=== PATIENT | female | born 1950 | race Caucasian/White ===

== ENCOUNTER 2018-09-05 15:02 | Outpatient (CLI) | payer MEDICARE, MEDICAID ==
[~2018-09-05] VITALS: Ht 154.9 cm; Wt 62.6 kg
[2018-09-05 15:10] VITALS: BP 120/72
--- NOTE | 2018-09-06 01:00 | Consultation ---
DATE OF CONSULTATION: 09/05/2018 CONSULTING PHYSICIAN: Mark Lechuga M.D. CHIEF COMPLAINT: Screening colonoscopy evaluation, chronic GERD. HISTORY OF PRESENT ILLNESS: This is a 68-year-old female with past medical history of breast cancer, status post mastectomy, currently on pills, arthritis, who presents for evaluation of screening colonoscopy and history of chronic GERD. PAST MEDICAL HISTORY: As above. PAST SURGICAL HISTORY: Right mastectomy. MEDICATIONS: Naprosyn, Celebrex, and chemotherapy for breast CA. FAMILY HISTORY: Noncontributory. SOCIAL HISTORY: The patient denies any tobacco, alcohol, or illicit drug abuse. . ALLERGIES: No known drug allergies. PHYSICAL EXAMINATION: VITAL SIGNS: Temperature 97.4, pulse is 77, blood pressure is 120/72. HEENT: Normocephalic and atraumatic. No scleral icterus. NECK: Supple. No obvious evidence of lymphadenopathy. CARDIOVASCULAR: Regular rate and rhythm. Plus S1 and S2. No obvious murmur. LUNGS: Clear to auscultation bilaterally. ABDOMEN: Positive bowel sounds. Soft, nontender. No rebound. No guarding. No peritoneal sign. EXTREMITIES: No cyanosis, no clubbing, no edema. ASSESSMENT AND PLAN: This is a 68-year-old female in need for screening colonoscopy. Last colonoscopy more than five years ago. She does not know if she had polyps or she did not have polyps. Reports are not available. The patient also complained of chronic GERD, so we will plan to do endoscopy and colonoscopy. The patient was given instructions for the procedure and the prep. The patient states she will call for an appointment. I want to thank Dr. Roberto Carlos Ybarra for this kind referral. Mark Lechuga M.D. DR: AG JOB#: [id number] CC: Roberto Carlos Ybarra M.D.
[2018-09-06] MEDS ORDERED: CELEBREX200 MG ORAL (08:57)
[2018-09-06] MEDS ORDERED: NAPROXEN250 MG ORAL (08:57)
[2018-09-06] MEDS ORDERED: [UNRECOGNIZED DRUG - REMARK] (08:57)
== END 2018-09-05 15:32 | disposition home or self-care (01) ==
LOC: PAN 15:02
DX: Z12.11 Encounter for screening for malignant neoplasm of colon (principal); K21.9 Gastro-esophageal reflux disease without esophagitis; Z85.3 Personal history of malignant neoplasm of breast; Z90.11 Acquired absence of right breast and nipple; M19.90 Unspecified osteoarthritis, unspecified site; C50.919 Malignant neoplasm of unspecified site of unspecified female breast
CPT/HCPCS: 99202

== ENCOUNTER 2019-01-04 08:59 | Day surgery (SDC) | payer MEDICARE, MEDICAID ==
[2019-01-04] VITALS (7 sets, daily range): BP systolic 109–122; BP diastolic 55–76
[~2019-01-04] VITALS: Ht 157.5 cm; Wt 59.9 kg
[~2019-01-04 08:59] MED LIST: CELEBREX200 MG ORAL; NAPROXEN250 MG ORAL; [UNRECOGNIZED DRUG - REMARK]
[2019-01-04] MEDS ORDERED: ANASTROZOLE1 MG PO (09:27)
--- NOTE | 2019-01-04 09:52 | Short Stay Surgery H&P ---
History of Present Illness History of Present Illness Chief Complaint see recent office note HPI Kacey Johnston is a 68 year old female who was admitted on for Abdominal Pain , Gerd Patient History Allergies: Coded Allergies: No Known Allergies (Unverified , 09/06/18) Medication History Scheduled Anastrozole* (Arimidex*), 1 MG PO DAILY, (Reported) Celecoxib* (Celebrex*), 200 MG ORAL TWICE A DAY, (Reported) Naproxen* (Naprosyn*), 250 MG ORAL TWICE A DAY, (Reported) Physical Exam Vital Signs Last Vital Signs Date Time Temp Pulse Resp B/P (MAP) Pulse Ox O2 Delivery O2 Flow Rate FiO2 01/04/19 09:34 Room Air 01/04/19 09:33 97.8 71 18 109/55 99 Plan Attestation Are the patient's medical conditions optimized for surgery? Mark Lechuga MD Jan 04, 2019 09:52
--- NOTE | 2019-01-04 09:52 | Pre-Procedure Note/Attestation ---
Pre-Procedure Note/Attestation Complete Prior to Procedure Planned Procedure: not applicable Procedure Narrative: esophagogastroduodenoscopy and colonoscopy Indications for Procedure Pre-Operative Diagnosis: screening colon, GERD Attestation I attest that I discussed the nature of the procedure; its benefits; risks and complications; and alternatives (and the risks and benefits of such alternatives ), prior to the procedure, with the patient (or the patient's legal sales and service representative). I attest that, if there was a reasonable possibility of needing a blood transfusion, the patient (or the patient's legal sales and service representative) was given the [facility] standardized written summary, pursuant to the Lionel Bourbon Blood Safety Act ([place] Health and Safety Code # 1645, as amended). I attest that I re-evaluated the patient just prior to the surgery and that there has been no change in the patient's H&P, except as documented below: Mark Lechuga MD Jan 04, 2019 09:52
[2019-01-04] MEDS ORDERED: Midazolam 2mg/2ml Inj ONE (10:00)
[2019-01-04] MEDS ORDERED: fentaNYL 100 mcg/2 mL IV ONE (10:00)
[2019-01-04] MEDS ORDERED: Propofol 200mg/20ml IV ONE (10:00)
[2019-01-04] MEDS ORDERED: LR 1000ml 1,000 ML IVLG SCH (10:24)
--- NOTE | 2019-01-04 10:24 | Anethesia Preoperative Eval ---
Anesthesia Pre-op PMH/ROS General Date of Evaluation: Jan 04, 2019 Time of Evaluation: 09:58 Anesthesiologist: Scot ASA Score: ASA 1 Mallampati Score Class I : Soft palate, uvula, fauces, pillars visible Class II: Soft palate, uvula, fauces visible Class III: Soft palate, base of uvula visible Class IV: Only hard plate visible Mallampati Classification: Class II Surgeon: Alexandrea Diagnosis: Abdominal pain Surgical Procedure: EGD Colonoscopy Anesthesia History: none Family History: no anesthesia problems Allergies: Coded Allergies: No Known Allergies (Unverified , 09/06/18) Medications: see eMAR Patient NPO?: Yes Past Medical History Cardiovascular: Denies: HTN, CAD, ND, valve dz, arrhythmia, other Pulmonary: Denies: asthma, COPD, RICK, other Gastrointestinal/Genitourinary: Reports: GERD; Denies: CRI, ESRD, other Neurologic/Psychiatric: Reports: depression/anxiety; Denies: dementia, CVA, TIA, other Endocrine: Denies: DM, hypothyroidism, steroids, other HEENT: Denies: cataract (L), cataract (R), glaucoma, BEAVER (L), BEAVER (R), other Hematology/Immune: Denies: anemia, DVT, bleeding disorder, other Musculoskeletal/Integumentary: Denies: OA, RA, DJD, DDD, edema, other PMH Narrative: as above PSxH Narrative: R mastectomy Anesthesia Pre-op Phys. Exam Physician Exam Last Vital Signs Date Time Temp Pulse Resp B/P (MAP) Pulse Ox O2 Delivery O2 Flow Rate FiO2 01/04/19 09:34 Room Air 01/04/19 09:33 97.8 71 18 109/55 99 Constitutional: NAD Neurologic: CN 2-12 intact Cardiovascular: RRR, no M/R/G Respiratory: CTA Gastrointestinal: S/NT/ND Airway Exam Mallampati Score: Class II MO: full ROM: full Teeth: intact Dentures: no upper, no lower Anesthesia Pre-op A/P Risk Assessment & Plan Assessment: ASA 2 Plan: MAC Status Change Before Surgery: No Arden Ellison MD Jan 04, 2019 10:24
[2019-01-04] MEDS ORDERED: fentaNYL 100 mcg/2 mL IV PRN (10:30)
--- NOTE | 2019-01-04 10:39 | Immediate Post-Op Evaluation ---
Immediate Post-Op Evalulation Immediate Post-Op Evalulation Procedure: EGD Colonoscopy Date of Evaluation: Jan 04, 2019 Time of Evaluation: 10:39 IV Fluids: 500 Blood Products: none Estimated Blood Loss: none Urinary Output: none Blood Pressure Systolic: 118 Blood Pressure Diastolic: 72 Pulse Rate: 68 Respiratory Rate: 20 O2 Sat by Pulse Oximetry: 98 Temperature (Fahrenheit): 97.6 Pain Score (1-10): 1 Nausea: No Vomiting: No Complications none Patient Status: awake, patent, none Hydration Status: adequate Arden Ellison MD Jan 04, 2019 10:39
--- NOTE | 2019-01-04 10:41 | Endoscopy Procedure Note ---
Endoscopy Procedure Note General Indication for Procedure: screening colon, GERD Procedures Performed: EGD, colonoscopy Operative Findings/Diagnosis: gastritis, diverticulosis Specimen: yes Pt Tolerated Procedure Well: Yes Estimated Blood Loss: none Anesthesia Anesthesiologist: zuleyma Anesthesia: MAC Inserted Devices Implant(s) used?: No Quality Quality of Bowel Preparation: Excellent Did scope reach the cecum?: Yes Was there any complications?: No GI Core Measures 50 yrs or older w/o bx or poly: No 10yrs. F/U recommended: Yes If not recommended, why?: Above average risk 18 years or older w/prev. colo: No Mark Lechuga MD Jan 04, 2019 10:41
--- NOTE | 2019-01-04 11:12 | 48 Hour Post Anesthesia Eval ---
Post Anesthesia Evaluation Procedure: EGD Colonoscopy Date of Evaluation: Jan 04, 2019 Time of Evaluation: 11:11 Blood Pressure Systolic: 102 0: 54 Pulse Rate: 78 Respiratory Rate: 20 Temperature (Fahrenheit): 97.6 O2 Sat by Pulse Oximetry: 98 Airway: patent Nausea: No Vomiting: No Pain Intensity: 1 Hydration Status: adequate Cardiopulmonary Status: stable Mental Status/LOC: patient returned to baseline Follow-up Care/Observations: n/a Post-Anesthesia Complications: none Follow-up care needed: ready to discharge Arden Ellison MD Jan 04, 2019 11:12
--- NOTE | 2019-01-04 16:30 | Procedure Note ---
DATE OF PROCEDURE: 01/04/2019 SURGEON: Mark Lechuga M.D. PROCEDURE: Upper endoscopy with biopsy and colonoscopy. ANESTHESIA: Per Dr. Arden Ellison. INSTRUMENT: Olympus adult flexible upper endoscope and colonoscope. INDICATIONS: Screening colonoscopy examination, chronic GERD. REASON FOR PROCEDURE: The procedure, risks, benefits, and possible consequences, including hemorrhage, aspiration, perforation and infection, and alternative treatments, were explained to the patient/legal guardian by Dr. Mark Lechuga and the patient/legal guardian understood and accepted these risks. PROCEDURE IN DETAIL: After informed consent was obtained and the patient was adequately sedated, Olympus upper endoscope was advanced from mouth into the second portion of the duodenum and retroflexion was performed in the stomach. The patient has diffuse gastritis, suspicious for H. pylori infection. Random biopsies from antrum and body were obtained. At this time, the upper endoscope was retrieved. The patient was turned over for colonoscopy. First, rectal exam was performed, which was normal. Then, the scope was advanced from the rectum, cecum, and then subsequently into terminal ileum. Quality of prep overall was very good. The patient had normal colonoscopy examination except for scattered diverticulosis in the left colon. No obvious mass or polyp was seen. Retroflexion of rectum showed evidence of internal hemorrhoids. SUMMARY OF FINDINGS: 1. Gastritis, status post biopsy. 2. Diverticulosis. 3. Internal hemorrhoids. RECOMMENDATIONS: 1. Follow up biopsy results and treat accordingly. 2. The patient to follow in the office in one or two weeks. Mark Lechuga M.D. DR: AYE JOB#: [id number] CC:
== END 2019-01-04 11:40 | disposition home or self-care (01) ==
LOC: GAS 08:59
DX: Z12.11 Encounter for screening for malignant neoplasm of colon (principal); K29.50 Unspecified chronic gastritis without bleeding; K57.90 Diverticulosis of intestine, part unspecified, without perforation or abscess without bleeding; K64.8 Other hemorrhoids; K21.9 Gastro-esophageal reflux disease without esophagitis; Z79.899 Other long term (current) drug therapy; F32.9 Major depressive disorder, single episode, unspecified; F41.9 Anxiety disorder, unspecified; Z90.11 Acquired absence of right breast and nipple; B96.81 Helicobacter pylori [H. pylori] as the cause of diseases classified elsewhere
CPT/HCPCS: 43239; G0121; J2250; J2704; J3010; 94003; 94150